=== PATIENT | female | born 1945 | race Hispanic/Latino ===

== ENCOUNTER → 2018-01-28 | Day surgery (SDC) | payer MEDICARE ==
[2018-01-27 13:15] LABS: BASOPHILS % 0.7 % (0.0-1.0); EOSINOPHILS # (AUTO) 0.1 (0.0-0.4); EOSINOPHILS % 2.2 % (0.0-6.0); HEMATOCRIT 38.8 % (34.2-44.1); LYMPHOCYTES # (AUTO) 1.6 (1.0-3.2); LYMPHOCYTES % 28.8 % (18.0-39.1); MEAN CORPUSCULAR HGB CONC 33.5 g/dL (31-35); MEAN CORPUSCULAR VOLUME 89.4 fL (81-99); MONOCYTES # (AUTO) 0.4 (0.2-0.8); MONOCYTES % 7.6 % (4.4-11.3); NEUTROPHILS # (AUTO) 3.4 (2.1-6.9); NEUTROPHILS % 60.5 % (38.7-80.0); PLATELET COUNT 160 x10e3/uL (140-360); RED BLOOD COUNT 4.34 x10e6/uL (3.6-5.1); RED CELL DISTRIBUTION WIDTH 12.2 % (11.7-14.4)
[~2018-01-28] MED LIST: AMLODIPINE BESY10 MG PO; ATORVASTATIN CA20 MG PO; CARVEDILOL12.5 MG PO; PROPOFOL IV EMULSION 10 MG/ML 50 ML VIAL ONE; VITAMIN D1000 UNI1 PO
[2018-01-28 09:15] VITALS: BP 147/76
--- NOTE | 2018-01-28 09:53 | Operative Report ---
DATE OF PROCEDURE: January 28, 2018 PROCEDURE: Colonoscopy. Here for colon cancer screening and fecal occult positive blood. PROCEDURE: After informed written consent, premedications with monitored anesthesia care, the standard adult video Olympus colonoscope was introduced into the rectum, and all the way into the cecum. The cecum and appendiceal orifice appeared to be normal. The proximal ascending colon showed 3 polyps varying in size from [address] to 2 cm in size. The 2 smaller polyps, 5- and 6-mm polyps were removed by cold snare. The larger 2-cm polyp was removed using saline assisted polypectomy. There was minimal bleeding right after polypectomy, which was treated with cauterization and 2 Endoclip placements. The hepatic flexure and mid-ascending colon also showed polyps around 5-6 mm in size, which were removed with cold snare. The midtransverse also showed a 6-mm polyp removed with cold snare. Occasional diverticulosis was noted in the area of the sigmoid colon, and internal hemorrhoids were noted in the rectum. IMPRESSION 1. Large polyp in the proximal ascending colon around 2 cm in size removed by saline assisted polypectomy and Endoclip placement. 2. Other polyps also in the proximal ascending colon removed with cold snare. 3. Polyps noted in mid-ascending, hepatic flexure and midtransverse removed with cold snare. 4. Internal hemorrhoids. 5. Diverticulosis. RECOMMENDATIONS: Avoid aspirin, NSAIDs for 2 weeks. Colonoscopy in 1 year since the prep was not optimal in some areas, and also due to the fact that the patient had multiple polyps. Follow up in the office in 2-3 weeks. Further recommendations will be based on the patient's clinical course. Job#: [id number] GERARDO
== END | disposition home or self-care (01) ==
LOC: OR 06:14
PROVIDERS: ATTEND Internal Medicine Gastroenterology
DX: R19.5 Other fecal abnormalities (principal); D12.2 Benign neoplasm of ascending colon; D12.3 Benign neoplasm of transverse colon; K57.30 Diverticulosis of large intestine without perforation or abscess without bleeding; K64.8 Other hemorrhoids; K21.9 Gastro-esophageal reflux disease without esophagitis; Z71.3 Dietary counseling and surveillance; I10 Essential (primary) hypertension; E66.3 Overweight; E78.00 Pure hypercholesterolemia, unspecified; R06.83 Snoring; R00.1 Bradycardia, unspecified; I44.0 Atrioventricular block, first degree; Z01.810 Encounter for preprocedural cardiovascular examination; Z01.812 Encounter for preprocedural laboratory examination; Z79.82 Long term (current) use of aspirin; Z68.27 Body mass index [BMI] 27.0-27.9, adult
CPT/HCPCS: 36415; 44391; 45381; 45385; 85025; 88305; 93005